=== PATIENT | female | born 1955 | race Caucasian/White ===

== ENCOUNTER → 2022-02-14 | Outpatient (RCR) | payer OTHER | LOC: PT 08:57 | PROVIDERS: ATTEND Specialist | DX: M24.612 Ankylosis, left shoulder (principal) ==

== ENCOUNTER 2022-03-06 10:00 | Outpatient (RCR) | payer OTHER | END 2022-03-16 | LOC: PT 10:00 | PROVIDERS: ATTEND Specialist | DX: M24.612 Ankylosis, left shoulder (principal) ==

== ENCOUNTER 2022-04-04 10:00 | Outpatient (RCR) | payer OTHER | END 2022-04-16 | LOC: PT 10:00 | PROVIDERS: ATTEND Specialist | DX: M24.612 Ankylosis, left shoulder (principal) ==

== ENCOUNTER 2022-04-19 10:57 | Outpatient (RCR) | payer OTHER | END 2022-05-16 | LOC: PT 10:57 | PROVIDERS: ATTEND Specialist | DX: M54.2 Cervicalgia (principal); M25.612 Stiffness of left shoulder, not elsewhere classified; M53.82 Other specified dorsopathies, cervical region ==